=== PATIENT | female | born 1930 ===

== ENCOUNTER 2020-11-23 19:20 | Inpatient (IN) | payer OTHER ==
[~2020-11-23] VITALS: Ht 167.6 cm; Wt 58.1 kg
[2020-11-23 21:49] VITALS: BP 120/63
[2020-11-23] MEDS ORDERED: LIPITOR40 MG PO (23:59)
[2020-11-23] MEDS ORDERED: NORVASC5 MG PO (23:59)
[2020-11-24] MEDS ORDERED: CARVEDILOL6.25 MG PO
[2020-11-24] MEDS ORDERED: CLOPIDOGREL75 MG PO (00:01)
[2020-11-24] MEDS ORDERED: B-12500 MC1 PO (00:02)
[2020-11-24] MEDS ORDERED: ARICEPT5 M1 PO (00:03)
[2020-11-24] MEDS ORDERED: LEXAPRO10 MG PO (00:04)
[2020-11-24] MEDS ORDERED: PEPCID20 MG PO (00:04)
[2020-11-24] MEDS ORDERED: ZESTRIL20 MG PO (00:09)
[2020-11-24] MEDS ORDERED: MAGOX 400400 MG PO (00:09)
[2020-11-24] MEDS ORDERED: PRESERVISION A1 EAC3 PO (00:11)
[2020-11-24] MEDS ORDERED: SEROQUEL25 MG PO (00:12)
[2020-11-24] MEDS ORDERED: TRIAMTERENE-HC1 EACH PO (00:13)
[2020-11-24 07:00] LABS: BASO % 0.5 % (0.0-1.0); EOS # 0.3 10*3/uL (0.0-0.4); EOS % 6.3 % (1.0-4.0); HEMATOCRIT 23.1 % (37.0-47.0); LYMPH % 22.1 % (27.0-41.0); MEAN CELL VOLUME 96.3 fl (81.0-99.0); MEAN CORPUSCULAR HGB 30.4 pg (27.0-31.0); MEAN CORPUSCULAR HGB CONC 31.6 g/dl (33.0-37.0); MEAN PLATELET VOLUME 11.6 fl (9.6-12.3); MONO # 0.4 10*3/uL (0.1-1.0); NEUT # 2.8 10*3/uL (2.3-7.9); NEUT % 61.9 % (47.0-73.0); PLATELET COUNT AUTOMATED 153 10*3/uL (130-400); RED CELL DISTRI WIDTH 14.7 % (0-14.5); WHITE BLOOD COUNT 4.4 10*3/uL (4.8-10.8)
[2020-11-24 07:21] LABS: POTASSIUM 4.2 mmol/L (3.5-5.1)
[2020-11-24 07:46] LABS: ALBUMIN 2.4 gm/dl (3.1-4.5); CREATININE 2.7 mg/dL (0.55-1.02); THYROID STIM HORMONE (HS) 1.81 uIU/ml (0.358-4.75); TOTAL PROTEIN 6.2 gm/dL (6.4-8.2)
[2020-11-24 07:55] LABS: VITAMIN D, 25-HYDROXY 18.9 ng/mL (30-100)
[2020-11-24 08:16] VITALS: BP 125/67
[2020-11-24 19:28] VITALS: BP 126/64
[2020-11-24 21:28] LABS: BILIRUBIN Negative (Negative); BLOOD Negative (Negative); CLARITY Cloudy (Clear); COLOR Yellow (Yellow); GLUCOSE Negative (Negative); KETONE Negative (Negative); LEUKO ESTERASE 3+ (Negative); NITRITE Negative (Negative); PH 5.5 (4.5-8.0); SPECIFIC GRAVITY 1.015 (1.001-1.030); UROBILINOGEN 0.2 E.U./dl (0.0-1.0)
[2020-11-24 21:39] LABS: BACTERIA 3+; EPITHELIAL CELLS 51-100; WBC TNTC wbc/hpf (0-5)
[2020-11-25 07:21] LABS: BASO % 0.2 % (0.0-1.0); EOS # 0.2 10*3/uL (0.0-0.4); EOS % 4.4 % (1.0-4.0); HEMATOCRIT 23.9 % (37.0-47.0); LYMPH # 0.9 10*3/uL (1.3-4.4); LYMPH % 15.5 % (27.0-41.0); MEAN CELL VOLUME 96.4 fl (81.0-99.0); MEAN CORPUSCULAR HGB 30.6 pg (27.0-31.0); MEAN CORPUSCULAR HGB CONC 31.8 g/dl (33.0-37.0); MEAN PLATELET VOLUME 11.8 fl (9.6-12.3); MONO # 0.4 10*3/uL (0.1-1.0); MONO % 7.5 % (3.0-9.0); NEUT % 72.2 % (47.0-73.0); PLATELET COUNT AUTOMATED 159 10*3/uL (130-400); RED BLOOD COUNT 2.48 10*6/uL (4.10-5.10); RED CELL DISTRI WIDTH 14.7 % (0-14.5); WHITE BLOOD COUNT 5.5 10*3/uL (4.8-10.8)
[2020-11-25 07:50] LABS: CREATININE 2.23 mg/dL (0.55-1.02); POTASSIUM 3.6 mmol/L (3.5-5.1)
[2020-11-25 08:00] VITALS: BP 158/53
[2020-11-25 20:00] VITALS: BP 125/53
[2020-11-26 08:00] VITALS: BP 119/48
[2020-11-26 20:00] VITALS: BP 129/50
[2020-11-27 08:00] VITALS: BP 149/63
[2020-11-27 20:00] VITALS: BP 106/51
[2020-11-28 07:58] VITALS: BP 135/50
[2020-11-28 20:00] VITALS: BP 150/67
[2020-11-29 08:00] VITALS: BP 142/60
[2020-11-29 10:55] LABS: BASO % 0.2 % (0.0-1.0); EOS # 0.1 10*3/uL (0.0-0.4); EOS % 1.1 % (1.0-4.0); HEMATOCRIT 24.2 % (37.0-47.0); LYMPH # 0.9 10*3/uL (1.3-4.4); MEAN CELL VOLUME 95.7 fl (81.0-99.0); MEAN CORPUSCULAR HGB 30.4 pg (27.0-31.0); MEAN CORPUSCULAR HGB CONC 31.8 g/dl (33.0-37.0); MEAN PLATELET VOLUME 11.5 fl (9.6-12.3); MONO # 0.5 10*3/uL (0.1-1.0); MONO % 10.5 % (3.0-9.0); PLATELET COUNT AUTOMATED 163 10*3/uL (130-400); RED BLOOD COUNT 2.53 10*6/uL (4.10-5.10); RED CELL DISTRI WIDTH 14.8 % (0-14.5); WHITE BLOOD COUNT 4.4 10*3/uL (4.8-10.8)
[2020-11-29 11:10] LABS: CREATININE 1.65 mg/dL (0.55-1.02); POTASSIUM 4.3 mmol/L (3.5-5.1)
[2020-11-29 19:39] VITALS: BP 126/51
[2020-11-30 08:00] VITALS: BP 141/69
[2020-11-30 08:16] LABS: BASO % 0.3 % (0.0-1.0); EOS # 0.2 10*3/uL (0.0-0.4); EOS % 3.4 % (1.0-4.0); HEMATOCRIT 26.5 % (37.0-47.0); LYMPH # 1.1 10*3/uL (1.3-4.4); LYMPH % 18.1 % (27.0-41.0); MEAN CELL VOLUME 95.7 fl (81.0-99.0); MEAN CORPUSCULAR HGB 30.3 pg (27.0-31.0); MEAN CORPUSCULAR HGB CONC 31.7 g/dl (33.0-37.0); MEAN PLATELET VOLUME 11.9 fl (9.6-12.3); MONO # 0.6 10*3/uL (0.1-1.0); MONO % 9.8 % (3.0-9.0); NEUT % 67.9 % (47.0-73.0); PLATELET COUNT AUTOMATED 203 10*3/uL (130-400); RED BLOOD COUNT 2.77 10*6/uL (4.10-5.10); RED CELL DISTRI WIDTH 14.9 % (0-14.5); WHITE BLOOD COUNT 5.9 10*3/uL (4.8-10.8)
[2020-11-30 20:00] VITALS: BP 104/55
[2020-12-01 10:38] VITALS: BP 103/63
[2020-12-01 20:00] VITALS: BP 142/62
[2020-12-02 06:31] LABS: CREATININE 1.43 mg/dL (0.55-1.02); POTASSIUM 4.4 mmol/L (3.5-5.1)
[2020-12-02 07:59] VITALS: BP 136/66
[2020-12-02 20:00] VITALS: BP 149/45
[2020-12-03 08:00] VITALS: BP 125/63
[2020-12-03 10:58] LABS: BASO % 0.4 % (0.0-1.0); EOS # 0.2 10*3/uL (0.0-0.4); EOS % 3.6 % (1.0-4.0); HEMATOCRIT 23.5 % (37.0-47.0); LYMPH # 1.1 10*3/uL (1.3-4.4); LYMPH % 19.5 % (27.0-41.0); MEAN CELL VOLUME 96.3 fl (81.0-99.0); MEAN CORPUSCULAR HGB 30.3 pg (27.0-31.0); MEAN CORPUSCULAR HGB CONC 31.5 g/dl (33.0-37.0); MEAN PLATELET VOLUME 11.6 fl (9.6-12.3); MONO # 0.7 10*3/uL (0.1-1.0); MONO % 12.3 % (3.0-9.0); NEUT # 3.6 10*3/uL (2.3-7.9); NEUT % 63.8 % (47.0-73.0); PLATELET COUNT AUTOMATED 184 10*3/uL (130-400); RED BLOOD COUNT 2.44 10*6/uL (4.10-5.10); WHITE BLOOD COUNT 5.6 10*3/uL (4.8-10.8)
[2020-12-03 11:12] LABS: ALBUMIN 2.3 gm/dl (3.1-4.5); CREATININE 1.48 mg/dL (0.55-1.02); POTASSIUM 4.4 mmol/L (3.5-5.1); TOTAL PROTEIN 5.7 gm/dL (6.4-8.2)
[2020-12-03 13:30] VITALS: BP 100/43
[2020-12-03 19:49] VITALS: BP 132/51
[2020-12-04 08:05] VITALS: BP 130/56
[2020-12-04 20:00] VITALS: BP 143/62
[2020-12-05 07:45] VITALS: BP 120/40
[2020-12-05 20:00] VITALS: BP 134/62
[2020-12-06 07:47] VITALS: BP 152/50
[2020-12-06 11:07] LABS: BASO % 0.3 % (0.0-1.0); EOS # 0.2 10*3/uL (0.0-0.4); EOS % 2.6 % (1.0-4.0); LYMPH # 0.8 10*3/uL (1.3-4.4); LYMPH % 10.7 % (27.0-41.0); MEAN CORPUSCULAR HGB 30.8 pg (27.0-31.0); MEAN CORPUSCULAR HGB CONC 31.7 g/dl (33.0-37.0); MEAN PLATELET VOLUME 12.2 fl (9.6-12.3); MONO # 0.9 10*3/uL (0.1-1.0); MONO % 12.4 % (3.0-9.0); NEUT # 5.2 10*3/uL (2.3-7.9); NEUT % 73.7 % (47.0-73.0); PLATELET COUNT AUTOMATED 184 10*3/uL (130-400); RED BLOOD COUNT 2.37 10*6/uL (4.10-5.10); RED CELL DISTRI WIDTH 15.7 % (0-14.5)
[2020-12-06 11:21] LABS: ALBUMIN 2.1 gm/dl (3.1-4.5); CREATININE 1.69 mg/dL (0.55-1.02); POTASSIUM 4.4 mmol/L (3.5-5.1); TOTAL PROTEIN 5.5 gm/dL (6.4-8.2)
[2020-12-06 20:00] VITALS: BP 128/51
[2020-12-07 07:36] VITALS: BP 129/50
[2020-12-07 16:12] LABS: BILIRUBIN Negative (Negative); BLOOD Negative (Negative); CLARITY Clear (Clear); COLOR Yellow (Yellow); GLUCOSE Negative (Negative); KETONE Negative (Negative); LEUKO ESTERASE Trace (Negative); NITRITE Negative (Negative); PH 6.5 (4.5-8.0); SPECIFIC GRAVITY 1.015 (1.001-1.030); UROBILINOGEN 0.2 E.U./dl (0.0-1.0)
[2020-12-07 16:30] LABS: BACTERIA TRACE; RBC 0-2 rbc/hpf (0-2)
[2020-12-07 20:00] VITALS: BP 129/50
[2020-12-08 07:31] VITALS: BP 100/57
[2020-12-08] MEDS ORDERED: ROZEREM8 MG PO (09:47)
[2020-12-08] MEDS ORDERED: NAMENDA-5 PO (09:47)
[2020-12-08] MEDS ORDERED: RISPERIDONE0.5 MG PO (09:47)
[2020-12-08] MEDS ORDERED: RIVASTIGMINE1 EAC2 T (09:47)
[2020-12-08] MEDS ORDERED: B121000 MCG/1 IM (09:47)
[2020-12-08] MEDS ORDERED: VITAMIN D3125 MC1 PO (09:47)
== END 2020-12-08 14:19 | DRG 883 ==
LOC: 3N 19:20
PROVIDERS: Counselor Professional; Family Medicine; Internal Medicine; Registered Nurse; ADMIT Psychiatry & Neurology Psychiatry; ATTEND Psychiatry & Neurology Psychiatry
PROC: BD1BYZZ Fluoroscopy of Mouth/Oropharynx using Other Contrast (ICD-10-PCS; principal; 2020-11-29)
DX: F63.81 Intermittent explosive disorder (principal); E43 Unspecified severe protein-calorie malnutrition; N17.0 Acute kidney failure with tubular necrosis; N18.4 Chronic kidney disease, stage 4 (severe); F23 Brief psychotic disorder; I25.10 Atherosclerotic heart disease of native coronary artery without angina pectoris; G30.9 Alzheimer's disease, unspecified; F02.80 Dementia in other diseases classified elsewhere, unspecified severity, without behavioral disturbance, psychotic disturbance, mood disturbance, and anxiety; Z20.822 Contact with and (suspected) exposure to COVID-19; I12.9 Hypertensive chronic kidney disease with stage 1 through stage 4 chronic kidney disease, or unspecified chronic kidney disease; F32.A Depression, unspecified; K21.9 Gastro-esophageal reflux disease without esophagitis; D64.9 Anemia, unspecified; E78.5 Hyperlipidemia, unspecified; R13.10 Dysphagia, unspecified; Z68.20 Body mass index [BMI] 20.0-20.9, adult; Z88.2 Allergy status to sulfonamides; Z79.899 Other long term (current) drug therapy

== ENCOUNTER 2020-12-17 16:30 | Inpatient (IN) | payer OTHER ==
[~2020-12-17] VITALS: Ht 167.6 cm; Wt 59.9 kg
[~2020-12-17 16:30] MED LIST: ARICEPT5 M1 PO; B-12500 MC1 PO; B121000 MCG/1 IM; CARVEDILOL6.25 MG PO; CLOPIDOGREL75 MG PO; LEXAPRO10 MG PO; LIPITOR40 MG PO; MAGOX 400400 MG PO; NAMENDA-5 PO; NORVASC5 MG PO; PEPCID20 MG PO; PRESERVISION A1 EAC3 PO; RISPERIDONE0.5 MG PO; RIVASTIGMINE1 EAC2 T; ROZEREM8 MG PO; SEROQUEL25 MG PO; TRIAMTERENE-HC1 EACH PO; VITAMIN D3125 MC1 PO; ZESTRIL20 MG PO
[2020-12-17] MEDS ORDERED: VISTARIL50 MG PO (17:20)
[2020-12-17 20:00] VITALS: BP 115/56
[2020-12-18 07:23] LABS: BASO % 0.3 % (0.0-1.0); EOS # 0.2 10*3/uL (0.0-0.4); EOS % 6.1 % (1.0-4.0); HEMATOCRIT 22.1 % (37.0-47.0); LYMPH # 0.8 10*3/uL (1.3-4.4); LYMPH % 21.2 % (27.0-41.0); MEAN CELL VOLUME 98.7 fl (81.0-99.0); MEAN CORPUSCULAR HGB 31.3 pg (27.0-31.0); MEAN CORPUSCULAR HGB CONC 31.7 g/dl (33.0-37.0); MEAN PLATELET VOLUME 12.3 fl (9.6-12.3); MONO # 0.4 10*3/uL (0.1-1.0); NEUT # 2.2 10*3/uL (2.3-7.9); NEUT % 60.4 % (47.0-73.0); PLATELET COUNT AUTOMATED 165 10*3/uL (130-400); RED BLOOD COUNT 2.24 10*6/uL (4.10-5.10); RED CELL DISTRI WIDTH 16.3 % (0-14.5); WHITE BLOOD COUNT 3.6 10*3/uL (4.8-10.8)
[2020-12-18 07:41] LABS: ALBUMIN 2.3 gm/dl (3.1-4.5); CREATININE 1.35 mg/dL (0.55-1.02); POTASSIUM 4.1 mmol/L (3.5-5.1); TOTAL PROTEIN 5.7 gm/dL (6.4-8.2)
[2020-12-18 07:48] LABS: THYROID STIM HORMONE (HS) 1.8 uIU/ml (0.358-4.75)
[2020-12-18 08:00] VITALS: BP 142/53
[2020-12-18 08:08] LABS: VITAMIN D, 25-HYDROXY 50.2 ng/mL (30-100)
[2020-12-18 20:26] VITALS: BP 161/63
[2020-12-18 23:04] VITALS: BP 160/66
[2020-12-19 08:00] VITALS: BP 110/66
[2020-12-19 09:14] LABS: HEMATOCRIT 21.1 % (37.0-47.0); MEAN CELL VOLUME 98.6 fl (81.0-99.0); MEAN CORPUSCULAR HGB 30.8 pg (27.0-31.0); MEAN CORPUSCULAR HGB CONC 31.3 g/dl (33.0-37.0); PLATELET COUNT AUTOMATED 159 10*3/uL (130-400); RED BLOOD COUNT 2.14 10*6/uL (4.10-5.10); RED CELL DISTRI WIDTH 16.1 % (0-14.5); WHITE BLOOD COUNT 3.5 10*3/uL (4.8-10.8)
[2020-12-19 09:39] LABS: BASOPHILS 1 % (0-1); PLATELET SUFFICIENCY NORMAL (NORMAL); TOTAL CELLS COUNTED 100 #CELLS
[2020-12-19] MEDS ORDERED: PALIPERIDONE ER3 MG PO (11:11)
[2021-01-02] MEDS ORDERED: Carafate1 GM PO (12:50)
[2021-01-02] MEDS ORDERED: PANTOPRAZOLE SO40 MG PO (12:50)
== END 2020-12-19 14:29 | disposition short-term general hospital (02) | DRG 883 ==
LOC: 3N 16:30
PROVIDERS: Internal Medicine; ADMIT Psychiatry & Neurology Psychiatry; ATTEND Psychiatry & Neurology Psychiatry
DX: F63.81 Intermittent explosive disorder (principal); N18.32 Chronic kidney disease, stage 3b; E44.0 Moderate protein-calorie malnutrition; F33.9 Major depressive disorder, recurrent, unspecified; K21.9 Gastro-esophageal reflux disease without esophagitis; I25.10 Atherosclerotic heart disease of native coronary artery without angina pectoris; E78.5 Hyperlipidemia, unspecified; I12.9 Hypertensive chronic kidney disease with stage 1 through stage 4 chronic kidney disease, or unspecified chronic kidney disease; D63.1 Anemia in chronic kidney disease; Z20.822 Contact with and (suspected) exposure to COVID-19; H35.30 Unspecified macular degeneration; E78.2 Mixed hyperlipidemia; Z68.21 Body mass index [BMI] 21.0-21.9, adult; Z88.2 Allergy status to sulfonamides

== ENCOUNTER 2020-12-19 13:00 | Inpatient (IN) | payer OTHER ==
[~2020-12-19] VITALS: Ht 167.6 cm; Wt 61.7 kg
[2020-12-19] VITALS (10 sets, daily range): BP systolic 127–173; BP diastolic 46–71
[~2020-12-19 13:00] MED LIST changes: +PALIPERIDONE ER3 MG PO; +VISTARIL50 MG PO
[2020-12-19 16:39] LABS: IRON 53 ug/dL (50-170); TOTAL IRON BINDING CAPACITY 178 ug/dl (250-450)
[2020-12-20] VITALS: BP 147/65
[2020-12-20 07:03] LABS: ALBUMIN 2.2 gm/dl (3.1-4.5); CREATININE 1.08 mg/dL (0.55-1.02); POTASSIUM 3.7 mmol/L (3.5-5.1); TOTAL PROTEIN 5.8 gm/dL (6.4-8.2)
[2020-12-20 07:04] LABS: BASO % 0.4 % (0.0-1.0); EOS # 0.3 10*3/uL (0.0-0.4); EOS % 6.5 % (1.0-4.0); HEMATOCRIT 26.4 % (37.0-47.0); LYMPH # 0.9 10*3/uL (1.3-4.4); MEAN CELL VOLUME 96.4 fl (81.0-99.0); MEAN CORPUSCULAR HGB 31.4 pg (27.0-31.0); MEAN CORPUSCULAR HGB CONC 32.6 g/dl (33.0-37.0); MONO # 0.5 10*3/uL (0.1-1.0); MONO % 9.9 % (3.0-9.0); NEUT # 2.9 10*3/uL (2.3-7.9); PLATELET COUNT AUTOMATED 156 10*3/uL (130-400); RED BLOOD COUNT 2.74 10*6/uL (4.10-5.10); RED CELL DISTRI WIDTH 17.2 % (0-14.5); WHITE BLOOD COUNT 4.6 10*3/uL (4.8-10.8)
[2020-12-20 08:00] VITALS: BP 154/79
[2020-12-20 12:00] VITALS: BP 159/65
[2020-12-20 16:00] VITALS: BP 159/81
[2020-12-20 21:00] VITALS: BP 144/63
[2021-01-02] MEDS ORDERED: PANTOPRAZOLE SO40 MG PO (12:50)
[2021-01-02] MEDS ORDERED: Carafate1 GM PO (12:50)
[2021-01-05] MEDS ORDERED: MELATONIN3 MG PO (12:23)
[2021-01-05] MEDS ORDERED: NAMENDA-5 PO (12:23)
[2021-01-05] MEDS ORDERED: PALIPERIDONE E1.5 MG PO (12:23)
== END 2020-12-20 21:30 | DRG 812 ==
LOC: 5E 13:00
PROVIDERS: Internal Medicine; ADMIT Internal Medicine; ATTEND Internal Medicine
PROC: 30233N1 Transfusion of Nonautologous Red Blood Cells into Peripheral Vein, Percutaneous Approach (ICD-10-PCS; principal; 2020-12-20)
DX: D64.9 Anemia, unspecified (principal); E44.0 Moderate protein-calorie malnutrition; F63.81 Intermittent explosive disorder; I25.10 Atherosclerotic heart disease of native coronary artery without angina pectoris; N18.9 Chronic kidney disease, unspecified; K21.9 Gastro-esophageal reflux disease without esophagitis; F32.A Depression, unspecified; I12.9 Hypertensive chronic kidney disease with stage 1 through stage 4 chronic kidney disease, or unspecified chronic kidney disease; E78.5 Hyperlipidemia, unspecified; Z88.2 Allergy status to sulfonamides; Z79.899 Other long term (current) drug therapy; Z68.22 Body mass index [BMI] 22.0-22.9, adult